=== PATIENT | female | born 1975 | race Caucasian/White ===

== ENCOUNTER 2019-05-27 10:37 | Emergency (ER) | payer BC ==
[2019-05-27 11:04] VITALS: BP 101/70
--- NOTE | 2019-05-27 11:25 | UC ---
Skin Complaint HPI - HPI Summary HPI Summary: Pt presents with c/o painful rash to right side of face just superior to right ear. That began 6 days ago. - History of Current Complaint Chief Complaint: UCSkin Time Seen by Provider: 05/27/19 11:13 Stated Complaint: SKIN CONCERN ON FACE Hx Obtained From: Patient Hx Last Menstrual Period: 05/01/19 ?: No Onset/Duration: Sudden Onset, Lasting Days, Still Present Skin Exposure Onset/Duration: Days Ago Timing: Constant Onset Severity: Mild Current Severity: Moderate Pain Intensity: 5 Location: Discrete, Face Character: Pain, Redness, Raised, Painful Aggravating Factor(s): Touch Associated Signs & Symptoms: Positive: Rash, Tenderness - Allergy/Home Medications Allergies/Adverse Reactions: Allergies Allergy/AdvReac Type Severity Reaction Status Date / Time No Known Allergies Allergy Verified 05/27/19 10:58 Home Medications: Home Medications DULoxetine DR CAP* [Cymbalta CAP*] 50 mg PO DAILY 05/27/19 [History Confirmed ] Nortriptyline CAP* [Pamelor CAP*] 25 mg PO BEDTIME 05/27/19 [History Confirmed 05/27/19] Omeprazole 20 mg PO DAILY 05/27/19 [History Confirmed 05/27/19] cloNIDine TAB* [Catapres 0.1 MG TAB*] 0.1 mg PO DAILY 05/27/19 [History Confirmed 05/27/19] PMH/Surg Hx/FS Hx/Imm Hx Previously Healthy: Yes - Surgical History Surgical History: None - Social History Occupation: Employed Full-time Lives: With Family Alcohol Use: None Substance Use Type: None Smoking Status (MU): Never Smoked Tobacco Have You Smoked in the Last Year: No - Immunization History Vaccination Up to Date: Yes Review of Systems All Other Systems Reviewed And Are Negative: Yes Constitutional: Positive: Negative Skin: Positive: Rash - painful right side of face Eyes: Positive: Negative ENT: Positive: Negative Respiratory: Positive: Negative Cardiovascular: Positive: Negative Gastrointestinal: Positive: Negative Genitourinary: Positive: Negative Motor: Positive: Negative Neurovascular: Positive: Negative Musculoskeletal: Positive: Negative Neurological: Positive: Negative Psychological: Positive: Negative Is Patient Immunocompromised?: No Physical Exam Triage Information Reviewed: Yes Appearance: Well-Appearing Vital Signs: Initial Vital Signs Temp 99.1 F 05/27/19 10:59 Pulse 79 05/27/19 10:59 Resp 14 05/27/19 10:59 BP 101/70 05/27/19 10:59 Pulse Ox 100 05/27/19 10:59 Vital Signs Reviewed: Yes Eye Exam: Normal ENT Exam: Normal Dental Exam: Normal Neck: Positive: Enlarged Nodes @ - right post auricular Respiratory: Positive: No respiratory distress Musculoskeletal Exam: Normal Neurological Exam: Normal Psychological Exam: Normal Skin: Positive: Rashes - right side of face, along sikhism, flattened vessicles, no drainage. Course/Dx - Differential Diagnoses - Skin Complaint Differential Diagnoses: Cellulitis, MRSA, Varicella Zoster - Diagnoses Provider Diagnosis: Shingles rash Discharge ED - Sign-Out/Discharge Documenting (check all that apply): Patient Departure All imaging exams completed and their final reports reviewed: No Studies - Discharge Plan Condition: Stable Disposition: HOME Prescriptions: predniSONE TAB* [Deltasone 10 MG TAB*] 30 mg PO DAILY #12 tab ValACYclovir (*) [Valtrex 1 GM(*)] 1 gm PO Q12H #14 tab Patient Education Materials: Shingles (ED) Referrals: Selene Johnston MD [Primary Care Provider] - If Needed - Billing Disposition and Condition Condition: STABLE Disposition: Home
== END 2019-05-27 11:33 | disposition home or self-care (01) ==
LOC: UCCORT 10:37
DX: B02.9 Zoster without complications (principal)
CPT/HCPCS: 99212; G0463